=== PATIENT | male | born 1985 | race Caucasian/White ===

== ENCOUNTER 2016-03-23 17:53 | Emergency (ER) | payer BC ==
--- NOTE | 2016-03-23 18:14 | ER Document Report ---
ED Medical Screen (RME) - General Chief Complaint: Nausea/Vomiting/Diarrhea Stated Complaint: VOMITING,DIARRHEA,BODY ACHES Time seen by provider: 18:13 Mode of Arrival: Ambulatory Information source: Patient Notes: 30-year-old male presents to ED for nausea vomiting diarrhea with body aches with intermittent fever 101 is the highest to be done. Pain nausea and vomiting has been for 3 days. I have greeted and performed a rapid initial assessment of this patient. A comprehensive ED assessment and evaluation of the patient, analysis of test results and completion of medical decision making process will be conducted by an additional ED providers. TRAVEL OUTSIDE OF THE [place] IN LAST 30 DAYS: No - Related Data Allergies/Adverse Reactions: No Known Allergies Allergy (Verified 02/01/15 10:21) Past Medical History Past Surgical History: Reports: Hx Appendectomy, Hx Tonsillectomy - adnoids - Immunizations Immunizations up to date: Yes Hx Diphtheria, Pertussis, Tetanus Vaccination: Yes
[2016-03-23] MEDS ORDERED: ONDANSETRON 4 MG TAB.RAPDIS PO ONE (18:15)
[2016-03-23 19:45] LABS: HEMATOCRIT 48.2 % (37.9-51.0); HEMOGLOBIN 15.4 g/dL (13.5-17.0); MEAN CORPUSCULAR HEMOGLOBIN 29.3 pg (27.0-33.4); MEAN CORPUSCULAR VOLUME 92 fl (80-97); RED BLOOD COUNT 5.27 10^6/uL (4.35-5.55); WHITE BLOOD COUNT 8.7 10^3/uL (4.0-10.5)
[2016-03-23 19:49] LABS: APPEARANCE,URINE CLEAR; BILIRUBIN,URINE NEGATIVE (NEGATIVE); GLUCOSE, URINE NEGATIVE (NEGATIVE); KETONES,URINE NEGATIVE (NEGATIVE); LEUKOCYTE ESTERASE,URINE NEGATIVE (NEGATIVE); NITRITE,URINE NEGATIVE (NEGATIVE); PROTEIN,URINE NEGATIVE (NEGATIVE); URINE SPECIFIC GRAVITY 1.009; UROBILINOGEN,URINE NEGATIVE mg/dL (<2.0)
[2016-03-23 20:12] LABS: BAND NEUTROPHILS % (MANUAL) 1 % (3-5); BASOPHILS % (MANUAL) 3 % (0-2); EOSINOPHILS % (MANUAL) 2 % (0-6); LYMPHOCYTES % (MANUAL) 34 % (13-45); TOTAL CELLS COUNTED 100
[2016-03-23 20:14] LABS: ALANINE AMINOTRANSFERASE 33 U/L (21-72); ALBUMIN 5.1 g/dL (3.5-5.0); ALKALINE PHOSPHATASE 50 U/L (38-126); ANION GAP 12 (5-19); ASPARTATE AMINO TRANSFERASE 29 U/L (17-59); BILIRUBIN,TOTAL 0.6 mg/dL (0.2-1.3); BLOOD UREA NITROGEN 7 mg/dL (7-20); CALCIUM 9.7 mg/dL (8.4-10.2); CARBON DIOXIDE 27 mmol/L (22-30); CHLORIDE 105 mmol/L (98-107); CREATININE RESULT 0.72 mg/dL (0.52-1.25); GLUCOSE 87 mg/dL (75-110); POTASSIUM 4.7 mmol/L (3.6-5.0); SODIUM 144.4 mmol/L (137-145); TOTAL PROTEIN 7.9 g/dL (6.3-8.2)
[2016-03-23 20:15] LABS: PLATELET CLUMPS PRESENT; TOXIC VACUOLATION PRESENT
[2016-03-23 21:10] VITALS: BP 137/89
[2016-03-23] MEDS ORDERED: ONDANSETRON ODT 4 MG TAB (6 TAB/DSPK) PO PRN (21:13)
[2016-03-23] MEDS ORDERED: FAMOTIDINE 20 MG TABLET PO ONE (21:13)
--- NOTE | 2016-03-23 21:16 | ER Document Report ---
ED General - General Chief Complaint: Flu Symptoms Stated Complaint: VOMITING,DIARRHEA,BODY ACHES Time seen by provider: 21:10 Mode of Arrival: Ambulatory Notes: Patient is a 30-year-old male that comes emergency department for chief complaint of nausea, vomiting, fever, diarrhea for 3 days. Had 2 episodes of diarrhea today, has not eaten much today. Patient denies any suspicious foods, denies any recent antibiotics, denies any blood in the vomit or stool. Patient denies any specific area of abdominal pain. Patient denies any medical problems , daily medications, or history of surgeries. Patient is unsure of sick contacts. TRAVEL OUTSIDE OF THE [place] IN LAST 30 DAYS: No - Related Data Allergies/Adverse Reactions: No Known Allergies Allergy (Verified 02/01/15 10:21) Past Medical History - General Information source: Patient - Social History Smoking Status: Former Smoker Frequency of alcohol use: None Drug Abuse: None Lives with: Family Family History: None Patient has suicidal ideation: No Patient has homicidal ideation: No - Medical History Medical History: Negative Renal/ Medical History: Denies: Hx Peritoneal Dialysis Past Surgical History: Reports: Hx Appendectomy, Hx Tonsillectomy - adnoids - Immunizations Immunizations up to date: Yes Hx Diphtheria, Pertussis, Tetanus Vaccination: Yes Review of Systems - Review of Systems Constitutional: No symptoms reported EENT: No symptoms reported Cardiovascular: No symptoms reported Respiratory: No symptoms reported Gastrointestinal: See HPI Genitourinary: No symptoms reported Male Genitourinary: No symptoms reported Musculoskeletal: No symptoms reported Skin: No symptoms reported Hematologic/Lymphatic: No symptoms reported Neurological/Psychological: No symptoms reported Physical Exam - Vital signs Vitals: Temp Pulse Resp BP Pulse Ox 98.3 F 84 20 135/79 H 99 03/23/16 18:10 03/23/16 18:10 03/23/16 18:10 03/23/16 18:10 03/23/16 18:10 Interpretation: Normal - General General appearance: Appears well, Alert In distress: None - HEENT Head: Normocephalic, Atraumatic Eyes: Normal Conjunctiva: Normal Extraocular movements intact: Yes Eyelashes: Normal Pupils: PERRL Sinus: Normal Nasal: Normal Mouth/Lips: Normal Mucous membranes: Normal Pharynx: Normal Neck: Normal - Respiratory Respiratory status: No respiratory distress Chest status: Nontender Breath sounds: Normal Chest palpation: Normal - Cardiovascular Rhythm: Regular. No: Tachycardia Heart sounds: Normal auscultation, S1 appreciated, S2 appreciated Murmur: No - Abdominal Inspection: Normal Distension: No distension Bowel sounds: Normal Tenderness: Nontender. No: Tender - Soft and unremarkable abdomen with no noted tenderness Organomegaly: No organomegaly - Back Back: Normal, Nontender. No: Tender - Extremities General upper extremity: Normal inspection, Nontender, Normal ROM, Normal strength General lower extremity: Normal inspection, Nontender, Normal ROM, Normal strength - Neurological Neuro grossly intact: Yes Cognition: Normal Orientation: AAOx4 [place] Coma Scale Eye Opening: Spontaneous Susi Coma Scale Verbal: Oriented [place] Coma Scale Motor: Obeys Commands Susi Coma Scale Total: 15 Speech: Normal Motor strength normal: LUE, RUE, LLE, RLE Sensory: Normal - Psychological Associated symptoms: Normal affect, Normal mood - Skin Skin Temperature: Warm Skin Moisture: Dry Skin Color: Normal Course - Re-evaluation Re-evalutation: Patient states he feels much better after the Zofran he received triage. Has not vomited since, able to tolerate fluid. Cup, exam, symptoms most consistent with viral gastroenteritis. - Vital Signs Vital signs: Temp Pulse Resp BP Pulse Ox 98.4 F 70 16 137/89 H 98 03/23/16 21:09 03/23/16 21:09 03/23/16 21:09 03/23/16 21:09 03/23/16 21:09 - Laboratory Result Diagrams: 03/23/16 19:24 03/23/16 19:24 Laboratory results interpreted by me: 03/23/16 03/23/16 19:24 19:24 Band Neutrophils % 1 L Basophils % (Manual) 3 H Abs Basophils (Manual) 0.3 H Albumin 5.1 H Discharge - Discharge Clinical Impression: Nausea vomiting and diarrhea Fever Qualifiers: Fever type: unspecified Qualified Code(s): R50.9 - Fever, unspecified Condition: Stable Disposition: HOME, SELF-CARE Additional Instructions: Your symptoms, workup, and examination are consistent with a viral gastroenteritis. Take the Pepcid as directed to help recover, take Zofran or Phenergan for nausea , start with bland foods and fluids, progress slowly. Follow-up with primary care. Return to the emergency department for any concerning symptoms including vomiting that will not stop, severe abdominal pain, etc. Prescriptions: Famotidine [Pepcid 20 mg Tablet] 20 mg PO BID #12 tablet Promethazine HCl [Phenergan 25 mg Tablet] 1 - 2 tab PO Q6H PRN #20 tablet PRN Reason: Forms: Return to Work Referrals: CASA KAISER PA-C [Primary Care Provider] - Follow up as needed
== END 2016-03-23 21:21 | disposition home or self-care (01) ==
LOC: ER 17:53
DX: R11.2 Nausea with vomiting, unspecified (principal); R50.9 Fever, unspecified; R19.7 Diarrhea, unspecified; Z87.891 Personal history of nicotine dependence
CPT/HCPCS: 99283; 36415; 83690; 85025; 80053; 81001; S0119

== ENCOUNTER 2016-06-17 00:07 | Emergency (ER) | payer BC ==
[2016-06-17] MEDS ORDERED: PENICILLIN G BENZATHINE 1.2 MILLION UNIT/2 ML DISP.SYRIN IM ONE (02:12)
[2016-06-17] MEDS ORDERED: DEXAMETHASONE 4 MG TABLET PO ONE (02:12)
--- NOTE | 2016-06-17 02:15 | ER Document Report ---
ED General - General Chief Complaint: Flu Symptoms Stated Complaint: FEVER,CHILLS,BODY ACHES Notes: Patient is a 30-year-old male without past medical history who presents with 2 days of sore throat, fever, generalized fatigue. 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 Describes the pain in his throat is a dull, constant, aching pain. Swallowing worsens the pain. He has tried ibuprofen with minimal improvement pain. He has had a fever at home up to 102.7 F. He denies any headache, lethargy, or altered mental status. He has had a dry nonproductive cough. He has not seen his primary care doctor regarding today's concerns. No history of similar symptoms in the past. TRAVEL OUTSIDE OF THE [place] IN LAST 30 DAYS: No - Related Data Allergies/Adverse Reactions: No Known Allergies Allergy (Verified 02/01/15 10:21) Past Medical History - General Information source: Patient - Social History Smoking Status: Never Smoker Chew tobacco use (# tins/day): No Frequency of alcohol use: Occasional Drug Abuse: None Lives with: Spouse/Significant other Family History: Reviewed & Not Pertinent Renal/ Medical History: Denies: Hx Peritoneal Dialysis Past Surgical History: Reports: Hx Appendectomy, Hx Tonsillectomy - adenoids - Immunizations Immunizations up to date: Yes Hx Diphtheria, Pertussis, Tetanus Vaccination: Yes Review of Systems - Review of Systems Notes: Constitutional: Positive for fever. HENT: Positive for sore throat. Eyes: Negative for visual changes. Cardiovascular: Negative for chest pain. Respiratory: Negative for shortness of breath. Gastrointestinal: Negative for abdominal pain, vomiting or diarrhea. Genitourinary: Negative for dysuria. Musculoskeletal: Negative for back pain. Skin: Negative for rash. Neurological: Negative for headaches, weakness or numbness. 10 point ROS negative except as marked above and in HPI. Physical Exam - Vital signs Vitals: Temp Pulse Resp BP Pulse Ox 98.4 F 91 16 132/98 H 98 06/17/16 00:21 06/17/16 00:21 06/17/16 00:21 06/17/16 00:21 06/17/16 00:21 Interpretation: Normal Notes: PHYSICAL EXAMINATION: GENERAL: Well-appearing, well-nourished and in no acute distress. HEAD: Atraumatic, normocephalic. EYES: Pupils equal round and reactive to light, extraocular movements intact, sclera anicteric, conjunctiva are normal. ENT: nares patent, bilateral tonsillar exudate and palatal petechiae. Uvula is midline. NECK: Normal range of motion, bilateral submandibular and anterior cervical lymphadenopathy that is tender to palpation. LUNGS: Breath sounds clear to auscultation bilaterally and equal. No wheezes rales or rhonchi. HEART: Regular rate and rhythm without murmurs ABDOMEN: Soft, nontender, normoactive bowel sounds. No guarding, no rebound. No masses appreciated. EXTREMITIES: Normal range of motion, no pitting or edema. No cyanosis. NEUROLOGICAL: No focal neurological deficits. Moves all extremities spontaneously and on command. PSYCH: Normal mood, normal affect. SKIN: Warm, Dry, normal turgor, no rashes or lesions noted. Course - Re-evaluation Re-evalutation: 06/17/16 02:13 Presentation of several days of sore throat in an otherwise well-appearing patient. Rapid strep is positive. History and exam are not consistent with a retropharyngeal abscess or peritonsillar abscess. Airway is patent. No difficulty handling oral secretions. Vitals within normal limits. Patient has been treated with an IM dose of penicillin. At this time will discharge with return precautions and follow-up recommendations. Verbal discharge instructions given a the bedside and opportunity for questions given. Medication warnings reviewed. Patient is in agreement with this plan and has verbalized understanding of return precautions and the need for primary care follow-up in the nex - Vital Signs Vital signs: Temp Pulse Resp BP Pulse Ox 98.4 F 91 16 132/98 H 98 06/17/16 00:21 06/17/16 00:21 06/17/16 00:21 06/17/16 00:21 06/17/16 00:21 Discharge - Discharge Clinical Impression: Strep pharyngitis Condition: Good Disposition: HOME, SELF-CARE Additional Instructions: You have been diagnosed with strep throat based on a positive strep test. You have been treated with a dose of penicillin here in the emergency department and do not need any additional antibiotics. You have also been given a dose of steroids to help with your throat discomfort. Please continue to take ibuprofen 600 mg every 6 hours or Tylenol 1000 mg every 6 hours as needed for throat discomfort. You can also gargle with salt water. Continue to drink plenty of fluids. Follow-up with your primary care doctor in the next several days. Return if you become unable to swallow, have difficulty breathing, pass out, have persistent vomiting that prevents you from being able to tolerate fluids, or have any other symptoms that are concerning to you. Forms: Return to Work
[2016-06-17 02:35] VITALS: BP 138/75
== END 2016-06-17 02:29 | disposition home or self-care (01) ==
LOC: ER 00:07
DX: J02.0 Streptococcal pharyngitis (principal); R50.9 Fever, unspecified; R52 Pain, unspecified; J02.9 Acute pharyngitis, unspecified; R53.83 Other fatigue; R05 Cough
CPT/HCPCS: 99283; 96372; 87880; 87804; J0561

== ENCOUNTER 2016-07-10 23:59 | Emergency (ER) | payer BC ==
[2016-07-11 00:06] VITALS: BP 139/80
[2016-07-11] MEDS ORDERED: AZITHROMYCIN 250 MG TABLET ONE (00:57)
[2016-07-11] MEDS ORDERED: LIDOCAINE 1% INJ-PF (10 MG/ML) 30 ML SDV ONE (00:58)
[2016-07-11] MEDS ORDERED: CEFTRIAXONE INJ 250 MG VIAL ONE (00:58)
--- NOTE | 2016-07-11 02:05 | ER Document Report ---
ED General - General Chief Complaint: STD Exposure Stated Complaint: STD EXPOSURE Time Seen by Provider: 07/11/16 02:03 Notes: Patient is a 30-year-old male without past medical history who presents with concerns that he may have been exposed to chlamydia. States that a sexual contact from several weeks ago notify him that she had tested positive for this so he wants to be tested. He denies any dysuria, testicular pain, rectal pain, rash or lesions to the genitalia. He has not seen his primary care doctor regarding todays concerns. No history of STIs in the past. TRAVEL OUTSIDE OF THE [place] IN LAST 30 DAYS: No - Related Data Allergies/Adverse Reactions: No Known Allergies Allergy (Verified 02/01/15 10:21) Past Medical History - General Information source: Patient - Social History Smoking Status: Never Smoker Frequency of alcohol use: None Drug Abuse: None Lives with: Spouse/Significant other Family History: Reviewed & Not Pertinent Patient has suicidal ideation: No Patient has homicidal ideation: No Renal/ Medical History: Denies: Hx Peritoneal Dialysis Past Surgical History: Reports: Hx Appendectomy, Hx Tonsillectomy - adenoids - Immunizations Immunizations up to date: Yes Hx Diphtheria, Pertussis, Tetanus Vaccination: Yes Review of Systems - Review of Systems Notes: Constitutional: Negative for fever. HENT: Negative for sore throat. Eyes: Negative for visual changes. Cardiovascular: Negative for chest pain. Respiratory: Negative for shortness of breath. Gastrointestinal: Negative for abdominal pain, vomiting or diarrhea. Genitourinary: Negative for dysuria. Musculoskeletal: Negative for back pain. Skin: Negative for rash. Neurological: Negative for headaches, weakness or numbness. 10 point ROS negative except as marked above and in HPI. Physical Exam - Vital signs Vitals: Temp Pulse Resp BP Pulse Ox 98.7 F 91 18 139/80 H 100 07/11/16 00:04 07/11/16 00:04 07/11/16 00:04 07/11/16 00:04 07/11/16 00:04 Interpretation: Normal Notes: PHYSICAL EXAMINATION: GENERAL: Well-appearing, well-nourished and in no acute distress. HEAD: Atraumatic, normocephalic. EYES: sclera anicteric, conjunctiva are normal. ENT: Moist mucous membranes. NECK: Normal range of motion LUNGS: Normal work of breathing HEART: 2+ radial pulses bilaterally EXTREMITIES: no pitting or edema. No cyanosis. NEUROLOGICAL: No focal neurological deficits. Moves all extremities spontaneously and on command. PSYCH: Normal mood, normal affect. SKIN: Warm, Dry, normal turgor, no rashes or lesions noted. Course - Re-evaluation Re-evalutation: 07/11/16 02:04 Patient presents with concerns that he may have acquired gonorrhea and/or chlamydia due to a recent sexual partner being told that she was positive for these. He denies any symptoms. He has declined formal testing and and is instead opted for empiric treatment. He will be treated with both ceftriaxone and azithromycin. At this time will discharge with return precautions and follow -up recommendations. Verbal discharge instructions given a the bedside and opportunity for questions given. Medication warnings reviewed. Patient is in agreement with this plan and has verbalized understanding of return precautions and the need for primary care follow-up in the next 24-72 hours. - Vital Signs Vital signs: Temp Pulse Resp BP Pulse Ox 98.7 F 91 18 139/80 H 100 07/11/16 00:04 07/11/16 00:04 07/11/16 00:04 07/11/16 00:04 07/11/16 00:04 Discharge - Discharge Clinical Impression: Exposure to sexually transmitted disease (STD) Condition: Good Disposition: HOME, SELF-CARE
[2016-07-11] MEDS ORDERED: AZITHROMYCIN 250 MG TABLET PO ONE (04:00)
[2016-07-11] MEDS ORDERED: CEFTRIAXONE INJ 250 MG VIAL IM ONE (04:00)
== END 2016-07-11 01:10 | disposition home or self-care (01) ==
LOC: ER 23:59
DX: Z20.2 Contact with and (suspected) exposure to infections with a predominantly sexual mode of transmission (principal)
CPT/HCPCS: 99283